=== PATIENT | female | born 1985 | race Caucasian/White ===

== ENCOUNTER 2016-12-20 16:45 | Emergency (ER) | payer SELFPAY ==
[2016-12-20 17:39] VITALS: BP 120/88
[2016-12-20 18:02] LABS: Basophils % (Auto) 0.6 % (0.0-1.8); Eosinophils % (Auto) 1.8 % (0.0-4.3); Hematocrit 42.8 % (30.3-42.9); Hemoglobin 14.3 gm/dl (10.1-14.3); Mean Corpuscular HGB Conc 33 % (30-34); Mean Corpuscular Hemoglobin 32 pg (28-32); Mean Corpuscular Volume 94 fl (79-97); Platelet Count 226 K/mm3 (140-440); Red Blood Count 4.54 M/mm3 (3.65-5.03); Red Cell Distribution Width 13.6 % (13.2-15.2); White Blood Count 10.2 K/mm3 (4.5-11.0)
[2016-12-20 18:21] LABS: Alanine Aminotransferase 10 units/L (7-56); Albumin 4.6 g/dL (3.9-5); Albumin/Globulin Ratio 1.5 %; Alkaline Phosphatase 61 units/L (35-129); Anion Gap 16 mmol/L; Blood Urea Nitrogen 5 mg/dL (7-17); Calcium 9.2 mg/dL (8.4-10.2); Carbon Dioxide 23 mmol/L (22-30); Chloride 105.7 mmol/L (98-107); Glucose 80 mg/dL (65-100); Lipase 28 units/L (13-60); Potassium 3.8 mmol/L (3.6-5.0); Sodium 141 mmol/L (137-145); Total Protein 7.6 g/dL (6.3-8.2)
[2016-12-20 18:52] LABS: Bilirubin,Urine NEG (Negative); Blood,Urine NEG (Negative); Ketones,Urine NEG (Negative); Leukocyte Esterase,Urine SM (Negative); Mucus,Urine 3+ /HPF; Nitrite,Urine NEG (Negative)
--- NOTE | 2016-12-22 10:56 | ED Elopement Review ---
ED Pt Elopement review - Results review Lab results: Laboratory Tests 12/20/16 12/20/16 12/20/16 17:42 17:42 17:42 WBC 10.2 RBC 4.54 Hgb 14.3 Hct 42.8 MCV 94 MCH 32 MCHC 33 RDW 13.6 Plt Count 226 Lymph % (Auto) 28.4 [place] % (Auto) 6.5 Eos % (Auto) 1.8 Baso % (Auto) 0.6 Lymph # 2.9 [place] # 0.7 Eos # 0.2 Baso # 0.1 Seg Neutrophils % 62.7 Seg Neutrophils # 6.4 Sodium 141 Potassium 3.8 Chloride 105.7 Carbon Dioxide 23 Anion Gap 16 BUN 5 L Creatinine 0.5 L Estimated GFR > 60 BUN/Creatinine Ratio 10.00 Glucose 80 Calcium 9.2 Total Bilirubin 0.40 AST 13 ALT 10 Alkaline Phosphatase 61 Total Protein 7.6 Albumin 4.6 Albumin/Globulin Ratio 1.5 Lipase 28 HCG, Qual Negative Urine Color Urine Turbidity Urine pH Ur Specific [place] Urine Protein Urine Glucose (UA) Urine Ketones Urine Blood Urine Nitrite Urine Bilirubin Urine Urobilinogen Ur Leukocyte Esterase Urine WBC (Auto) Urine RBC (Auto) U Epithel Cells (Auto) Urine Mucus 12/20/16 18:24 WBC RBC Hgb Hct MCV MCH MCHC RDW Plt Count Lymph % (Auto) [place] % (Auto) Eos % (Auto) Baso % (Auto) Lymph # [place] # Eos # Baso # Seg Neutrophils % Seg Neutrophils # Sodium Potassium Chloride Carbon Dioxide Anion Gap BUN Creatinine Estimated GFR BUN/Creatinine Ratio Glucose Calcium Total Bilirubin AST ALT Alkaline Phosphatase Total Protein Albumin Albumin/Globulin Ratio Lipase HCG, Qual Urine Color Yellow Urine Turbidity Slightly-cloudy Urine pH 6.0 Ur Specific [place] 1.025 Urine Protein 30 mg/dl Urine Glucose (UA) Neg Urine Ketones Neg Urine Blood Neg Urine Nitrite Neg Urine Bilirubin Neg Urine Urobilinogen 2.0 Ur Leukocyte Esterase Sm Urine WBC (Auto) 4.0 Urine RBC (Auto) 10.0 U Epithel Cells (Auto) 34.0 H Urine Mucus 3+ - Call Back decision Pt Call Back Decision: No action required
== END 2016-12-20 20:20 | disposition left against medical advice (07) ==
LOC: ED 16:45
DX: R10.9 Unspecified abdominal pain (principal); Z53.21 Procedure and treatment not carried out due to patient leaving prior to being seen by health care provider
CPT/HCPCS: 36415; 80053; 81001; 83690; 84703; 85025

== ENCOUNTER 2017-03-04 17:02 | Emergency (ER) | payer SELFPAY ==
[2017-03-04 17:16] VITALS: BP 119/68
--- NOTE | 2017-03-04 17:16 | Emergency Department Report ---
Stated Complaint: ABD PAIN Time Seen by Provider: 03/04/17 17:13 - HPI History of Present Illness: PT c/o lower abd pain x 1 week. PT states she has a hx of trich and cervicitis - ROS Review of Systems: + vaginal itching + vaginal discharge - Exam Physical Exam: Pt looks well, non toxic no acute distress steady gait gu exam not performed in triage MSE screening note: Focused history and physical exam performed. Due to findings the following was ordered: lab ED Disposition for MSE Condition: Stable
[2017-03-04 18:00] LABS: Bilirubin,Urine NEG (Negative); Blood,Urine NEG (Negative); Ketones,Urine NEG (Negative); Leukocyte Esterase,Urine NEG (Negative); Mucus,Urine FEW /HPF; Nitrite,Urine NEG (Negative); Protein,Urine <15 mg/dL mg/dL (Negative); Urobilinogen,Urine < 2.0 mg/dL (<2.0); WBC,Urine < 1.0 /HPF (0.0-6.0)
== END 2017-03-04 19:09 | disposition left against medical advice (07) ==
LOC: ED 17:02
DX: R10.30 Lower abdominal pain, unspecified (principal); N89.8 Other specified noninflammatory disorders of vagina; Z53.21 Procedure and treatment not carried out due to patient leaving prior to being seen by health care provider
CPT/HCPCS: 81001; 81025